=== PATIENT | female | born 1995 | race Caucasian/White ===

== ENCOUNTER → 2019-02-22 | Outpatient (CLI) | payer OTHER | LOC: BMCIMAGING 13:58 | PROVIDERS: ATTEND Internal Medicine | DX: M54.6 Pain in thoracic spine (principal) ==

== ENCOUNTER 2019-02-24 16:46 | Emergency (ER) | payer OTHER | END 2019-02-24 17:56 | disposition home or self-care (01) | LOC: CLAB 16:46 → CED 16:57 | DX: T14.8XXA Other injury of unspecified body region, initial encounter (principal) ==